=== PATIENT | female | born 1940 | race Caucasian/White ===

== ENCOUNTER 2021-11-22 08:11 | Emergency (ER) | payer MEDICARE, MEDICAID ==
[~2021-11-22] VITALS: Ht 160 cm; Wt 104.5 kg
[2021-11-22] MEDS ORDERED: LISI20TA35 (08:36)
[2021-11-22] MEDS ORDERED: METF10004 (08:36)
[2021-11-22] MEDS ORDERED: FURO20TA2 (08:36)
[2021-11-22] MEDS ORDERED: ACET1TAB55 PO (08:36)
[2021-11-22] MEDS ORDERED: OSELTAMIVIR PHOSPHATE 75 MG CAP (TAMIFLU) PO ONE (10:10)
[2021-11-22] MEDS ORDERED: ALBUTEROL 90 MCG/ACT 8GM HFA INHALER INH ONE (10:10)
[2021-11-22] MEDS ORDERED: VENTAER INH (10:37)
[2021-11-22] MEDS ORDERED: METH4TAB8 PO (10:37)
[2021-11-22 11:17] VITALS: BP 129/76
== END 2021-11-22 11:17 | disposition home or self-care (01) ==
LOC: M ED 08:11
DX: J09.X2 Influenza due to identified novel influenza A virus with other respiratory manifestations (principal); M48.061 Spinal stenosis, lumbar region without neurogenic claudication; E11.9 Type 2 diabetes mellitus without complications; E78.5 Hyperlipidemia, unspecified; Z79.84 Long term (current) use of oral hypoglycemic drugs; Z96.653 Presence of artificial knee joint, bilateral; Z79.899 Other long term (current) drug therapy; Z87.440 Personal history of urinary (tract) infections; Z90.49 Acquired absence of other specified parts of digestive tract